=== PATIENT | female | born 1975 | race Caucasian/White ===

== ENCOUNTER 2018-04-17 10:34 | Emergency (ER) | payer BC, OTHER ==
[~2018-04-17] VITALS: Ht 160 cm; Wt 61.7 kg
[2018-04-17 10:38] VITALS: Ht 160 cm; Wt 61.7 kg
[2018-04-17 11:31] VITALS: BP 138/89
== END 2018-04-17 11:31 | disposition home or self-care (01) ==
LOC: ED 10:34
DX: G47.00 Insomnia, unspecified (principal); F41.9 Anxiety disorder, unspecified; G89.29 Other chronic pain; M54.5 Low back pain; F17.210 Nicotine dependence, cigarettes, uncomplicated; E11.9 Type 2 diabetes mellitus without complications; F32.9 Major depressive disorder, single episode, unspecified
CPT/HCPCS: 99406; J1885

== ENCOUNTER 2018-04-20 18:13 | Emergency (ER) | payer BC, OTHER ==
[~2018-04-20] VITALS: Ht 160 cm; Wt 61.2 kg
[2018-04-20 18:24] VITALS: Ht 160 cm; Wt 61.2 kg
[2018-04-20 19:12] VITALS: BP 159/93
== END 2018-04-20 19:12 | disposition home or self-care (01) ==
LOC: ED 18:13
DX: G47.00 Insomnia, unspecified (principal); F41.9 Anxiety disorder, unspecified; F17.210 Nicotine dependence, cigarettes, uncomplicated; E11.9 Type 2 diabetes mellitus without complications; F32.9 Major depressive disorder, single episode, unspecified; M54.30 Sciatica, unspecified side
CPT/HCPCS: 99406; J1630; J2060

== ENCOUNTER 2019-02-20 19:40 | Emergency (ER) | payer BC, OTHER ==
[~2019-02-20] VITALS: Ht 160 cm; Wt 59.9 kg
[2019-02-20 21:46] VITALS: BP 114/68
== END 2019-02-20 21:47 | disposition home or self-care (01) ==
LOC: ED 19:40
DX: G56.31 Lesion of radial nerve, right upper limb (principal); E11.9 Type 2 diabetes mellitus without complications; F41.9 Anxiety disorder, unspecified; F32.9 Major depressive disorder, single episode, unspecified

== ENCOUNTER 2020-05-05 09:10 | Emergency (ER) | payer OTHER, SELFPAY ==
[~2020-05-05] VITALS: Ht 160 cm; Wt 63.5 kg
[2020-05-05 09:12] VITALS: Ht 160 cm; Wt 63.5 kg
[2020-05-05 16:17] LABS: BASOPHIL % 0.9 % (0.2-1.3); PLATELET COUNT 385 x10^3mcL (179-408); RED CELL DISTRIBUTION WIDTH 13.5 % (12.3-17.7)
[2020-05-05 16:38] LABS: CALCIUM 8.3 mg/dL (8.5-10.1); CARBON DIOXIDE 30.4 mmol/L (21-32); CHLORIDE SERUM 98 mmol/L (98-107); CREATININE SERUM 0.8 mg/dL (0.6-1.0); GFR1 > 60 mL/min; GLUCOSE SERUM 258 mg/dL (74-106); SODIUM SERUM 135 mmol/L (136-145)
[2020-05-05 16:42] LABS: ALBUMIN 3.8 g/dL (3.4-5.0); ALKALINE PHOSPHATASE 82 U/L (46-116); ALT/SGPT 19 U/L (14-59); AST/SGOT 13 U/L (15-37); BILIRUBIN TOTAL 0.78 mg/dL (0.20-1.00); LIPASE 177 IU/L (73-393); TOTAL PROTEIN, SERUM 8.2 g/dL (6.4-8.2)
[2020-05-05 17:14] VITALS: BP 147/89
== END 2020-05-05 17:16 | disposition home or self-care (01) ==
LOC: ED 09:10
PROVIDERS: Emergency Medicine
DX: A05.9 Bacterial foodborne intoxication, unspecified (principal); E11.9 Type 2 diabetes mellitus without complications; Z20.828 Contact with and (suspected) exposure to other viral communicable diseases
CPT/HCPCS: J1885; J2405; Q0162; U0003